=== PATIENT | male | born 1950 | race Caucasian/White ===

== ENCOUNTER 2020-01-15 10:39 | Emergency (ER) | payer OTHER, MEDICARE, SELFPAY ==
[2020-01-15 10:42] VITALS: BP 159/71; PULSE 69; RESP 16; TEMP 36.5; O2SAT 99; BMI 28.8
[2020-01-15 10:50] VITALS: O2SAT 99
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
[2020-01-15 13:05] VITALS: BP 156/72; PULSE 60; RESP 16; O2SAT 98
== END 2020-01-15 13:06 | disposition home or self-care (01) ==
PROVIDERS: Emergency Provider Emergency Medicine
DX: S09.90XA Unspecified injury of head, initial encounter (principal); S39.012A Strain of muscle, fascia and tendon of lower back, initial encounter; S10.91XA Abrasion of unspecified part of neck, initial encounter; V00.141A Fall from scooter (nonmotorized), initial encounter; Y93.I9 Activity, other involving external motion; Y92.9 Unspecified place or not applicable; Y99.8 Other external cause status; Z87.891 Personal history of nicotine dependence
CPT/HCPCS: 70450; 71045; 72100; 72125; 72170; 99285